=== PATIENT | female | born 1960 | race Caucasian/White ===

== ENCOUNTER → 2022-09-06 10:17 | Outpatient (CLI) | payer MEDICARE, SELFPAY ==
--- NOTE | ~2022-09-06 | MR_ITS ---
MRI of the right shoulder Technique: Axial proton-density fat-sat images, coronal proton density fat-sat and T2 fat-sat images, and sagittal T1-weighted and T2 fat-sat images were acquired. Clinical History: Pain Findings: There is mild degenerative change at the AC joint. No significant subacromial spur. [place] lavicular, coracoacromial, and coracohumeral ligaments are intact. There is full-thickness tear involving the posterior aspect of the distal supraspinatus tendon. Fluid -filled gap measures approximately 2.0 x 1.4 cm in extent. Infraspinatus tendon appears to be intact. Subscapularis tendon is intact. Tendon of the long head of the biceps is intact. Suspected superior labral tear, without anterior or posterior extension. Inferior glenohumeral ligament is intact. No glenohumeral joint degenerative change. No muscle atroph y or edema. Impression: 2.0 x 1.4 cm full-thickness tear involving the posterior aspect of the distal supraspinatus tendon. Probable superior labral tear without definite anterior or posterior extension. Mild degenerative change at the AC joint. Reviewed, dictated and finalized at location . Impression: 2.0 x 1.4 cm full-thickness tear involving the posterior aspect of the distal s upraspinatus tendon. Probable superior labral tear without definite anterior or posterior extension. Mild degenerative change at the AC joint.
== END ==
PROVIDERS: Visit Provider Physician Assistant
DX: S46.811A Strain of other muscles, fascia and tendons at shoulder and upper arm level, right arm, initial encounter (principal); M19.012 Primary osteoarthritis, left shoulder; X58.XXXA Exposure to other specified factors, initial encounter
CPT/HCPCS: 73221